=== PATIENT | male | born 1945 | race Caucasian/White ===

== ENCOUNTER → 2018-11-21 | Outpatient (CLI) | payer MEDICARE ==
--- NOTE | 2018-11-24 08:14 | REP ---
Whole body PET CT scan: The the patient had a left lower lobe lung nodule identified on outside CT of the abdomen and pelvis ([facility], 11/16/2018). Whole-body scanning is performed from skull base to the upper thighs. Neck and supraclavicular areas: There are no hypermetabolic foci. Chest: There are no hypermetabolic foci. The left lower lobe lung nodule is identified on the CT accompanying the PET scan. The maximal standard uptake value of this nodule is 2.21. This is non- half half half of the hypermetabolic. Abdomen, pelvis and upper thighs: There are no hypermetabolic foci. Impression: There are no hypermetabolic foci. Specifically, the patient's known left lung lower lobe nodule is non hypermetabolic. The study is performed with 9.72 mCi of F 18 FDG. Electronically Signed by Shad Ritchie MD 11/24/2018 08:06 A
== END ==
LOC: M PLARAD 11:05
PROVIDERS: ATTEND Family Medicine
DX: R91.8 Other nonspecific abnormal finding of lung field (principal)
CPT/HCPCS: 78815; A9552

== ENCOUNTER → 2020-01-13 | Outpatient (REF) | payer MEDICARE | LOC: M LAB REF 19:06 | PROVIDERS: ATTEND Dermatology | DX: L57.0 Actinic keratosis (principal); L57.8 Other skin changes due to chronic exposure to nonionizing radiation ==

== ENCOUNTER → 2020-11-18 | Outpatient (REF) | payer MEDICARE ==
[2020-11-18 15:28] LABS: SOURCE, BODY FLUID GLUCOSE LFT KNEE
[2020-11-18 15:53] LABS: CRYSTALS, BODY FLUID NONE SEEN (NONE SEEN); SOURCE, BODY FLUID LFT KNEE; SOURCE, BODY FLUID CRYSTALS LFT KNEE
[2020-11-18 16:00] LABS: SYNOVIAL FLUID COLOR RED (COLORLESS)
[2020-11-23 10:54] LABS: BODY FLUID RHEUMATOID SCREEN NEGATIVE (NEGATIVE)
[2020-11-23 10:55] LABS: MUCIN CLOT TEST 4+ (4+)
== END ==
LOC: M LAB REF 13:37
PROVIDERS: ATTEND Physician Assistant
DX: M25.462 Effusion, left knee (principal)

== ENCOUNTER → 2020-11-18 | Outpatient (CLI) | payer MEDICARE ==
[2020-11-18 15:05] LABS: BASO % 0.3 % (0.0-1.0); EOS # 0.1 10^3/uL (0.0-0.5); HEMATOCRIT 44.5 % (42.0-52.0); HEMOGLOBIN 14.1 g/dl (13.5-17.5); LYMPH # 1.7 10^3/uL (1.5-5.0); LYMPH % 17.8 % (24.0-44.0); MEAN CORPUSCULAR HEMOGLOBIN 28.7 pg (27.0-33.0); MEAN CORPUSCULAR HGB CONC 31.7 g/dl (32.0-36.5); MEAN CORPUSCULAR VOLUME 90.6 fl (80.0-96.0); MONO % 10.6 % (2.0-8.0); NEUTROPHILS # 6.7 10^3/uL (1.5-8.5); NEUTROPHILS % 69.9 % (36.0-66.0); PLATELET COUNT, AUTOMATED 267 10^3/uL (150-450); RED BLOOD COUNT 4.91 10^6/uL (4.30-6.10); WHITE BLOOD COUNT 9.6 10^3/uL (4.0-10.0)
[2020-11-18 15:26] LABS: C REACTIVE PROTEIN QUANTITATIV 1.29 MG/DL (0.00-0.30); RHEUMATOID FACTOR QUANT < 10.0 IU/ML (<15.0)
[2020-11-18 17:02] LABS: ERYTHROCYTE SEDIMENTATION RATE 32 mm/hr (0-20)
[2020-11-19 18:09] LABS: ANTINUCLEAR ANTIBODIES DIRECT Negative (Negative); Lyme Disease IgG/IgM Antibodie <0.91 ISR (0.00-0.90); Lyme Disease IgM Ab Quantitati <0.80 index (0.00-0.79)
== END ==
LOC: M LAB 13:04
PROVIDERS: ATTEND Physician Assistant
DX: M17.12 Unilateral primary osteoarthritis, left knee (principal); M25.462 Effusion, left knee